=== PATIENT | male | born 1960 | race Caucasian/White ===

== ENCOUNTER 2016-08-26 11:11 | Observation (INO) | payer OTHER ==
[~2016-08-26] VITALS: Ht 172.7 cm; Wt 139.7 kg
--- NOTE | 2016-08-26 12:25 | DIAGNOSTIC IMAGING REPORT ---
PROCEDURE: XR CHEST 1 VIEW INDICATION: CHEST PAIN TECHNIQUE: Portable AP view 11:45 a.m. COMPARISON: None. FINDINGS: Lungs are clear. Heart and mediastinum are normal. Thorax is normal. IMPRESSION: 1. Negative chest.
[2016-08-26 17:52] VITALS: BP 130/72
--- NOTE | 2016-08-26 18:08 | History & Physical Report ---
Information Source Information Source: Self Reliability: Good History Chief Complaint syncope and dizziness History of Present Illness Patient is a 56 year old male with a pmh of hypertension, herniated discs, asthma, and plantar fasciitis that is presenting with near syncope and hypotension. Patient had been in his [facility] when the patient started to see a new doctor for the first time in two years. Patient was placed on anti hypertensives as well as diuretics. Patient took the medications as prescribed and didnt have any adverse effects. Patient while at home had a sudden bout of vomiting and diarrhea while in the shower. Patient as a result fell and twisted his ankle. Patient had discomfort and swelling as a result. Patient called his doctor and described his leg "swollen to the size of a baseball". His pmd recommended that the patient start chlorathalidone for the swelling, and patient was told to increase his dosage over the next 4 days to 4 pills a day. Patient as a result began to take the medication. Patients leg swelling improved however he began to feel dizzy very easily and during each instance he had his fiance take his blood pressure which was 80s systolic. Patient continued on the medication despite this and would occasionally get dizzy and develop tunnel vision. Patient finally had a near syncopal episode this morning, his systolic was seen to be 75 by ems and patient was subsequently brought to the hospital. Patient History 1. Near syncope 2. Dehydration 3. Renal failure 4. Hypertension 5. Disc herniation 6. Plantar fasciitis Social History Patient lives alone at home with his . He is on disability and is indepent in all his ADLs. Patient additonally does not smoke, drinks socially and does use any illicit drugs. Family History Family history was reviewed; no changes noted. Medications and Allergies Medications Home Medications Oxycodone 5 mg tid flovent hfa inhaler proair hfa inhaler atrovastatin 40 mg daily losartan 100 mg daily tizanidine 12 mg tid gabapentin 200 mg tid Current Medications Sig/Ginette Start time Last Medication Dose Route Stop Time Status Admin Atorvastatin Calcium 40 MG QPM 08/27 1800 AC PO Gabapentin 200 MG TID 08/26 2200 AC PO Albuterol Sulfate 2.5 MG Q4H PRN 08/26 1915 AC IN Acetaminophen 650 MG Q6H PRN 08/26 183 AC PO Albuterol See Dose RTQ4H PRN 08/26 1830 CAN Insts (1) IN Oxycodone HCl 5 MG Q6H PRN 08/26 1830 AC PO Sodium Chloride 1,000 ML ASDIRECTED 08/26 1830 AC 08/26 IV 1915 Sodium Chloride 1,000 ML ASDIRECTED 08/26 1630 AC IV 08/27 0200 Dose Instructions: (1)Albuterol: 1 - 2 PUFFS Allergies Coded Allergies: Pseudoephedrine (From SUDAFED) (Intermediate, Confusion 08/26/16) Lidocaine (Mild, 08/26/16) Review of Systems Constitutional Weakness. Denies: Fever, Chills, Sweats, Malaise, Other. Eyes Other (tunnel vision occasionally ). Denies: Pain, Vision Change, Conjunctival Inflammation, Eyelid Inflammation, Redness. ENT Denies: Ear Pain, Ear Discharge, Nose Pain, Nasal Discharge, Nasal Congestion, Mouth Pain, Mouth Swelling, Throat Pain, Throat Swelling, Other. Respiratory Denies: Cough, Dry, SOB w/exertion, Wheezing, Hemoptysis, Pleuritic Pain, Sputum , Other. Cardiovascular Denies: Chest Pain, Palpitations, Orthopnea, PND, Edema, Light-headedness, Other. Gastrointestinal Denies: Nausea, Vomiting, Abdominal Pain, Diarrhea, Constipation, Melena, Hematochezia, Other. Genitourinary Denies: Dysuria, Frequency, Incontinence, Hematuria, Retention, Other. Musculoskeletal Back Pain. Denies: Neck Pain, Shoulder Pain, Arm Pain, Hand Pain, Leg Pain, Foot Pain, Other. Skin Denies: Rash, Lesions, Jaundice, Bruising, Other. Neurological Weakness, Other (dizziness ). Physical Exam Vital Signs / I&Os Vital Signs Date Time Temp Pulse Resp B/P Pulse O2 O2 Flow FiO2 Ox Delivery Rate 08/26 192 Room Air 08/26 1752 98.2 93 22 130/72 100 Room Air General Appearance Alert, Oriented X3, No acute distress HEENT Atraumatic, PERRLA, EOMI, Moist mucous membranes Lungs Normal exam, Clear to auscultation, Normal air movement Cardiovascular Regular rate and rhythm, Normal S1 and S2, No murmurs, gallops, rubs Abdomen Soft, No tenderness, No guarding, No rebound, No masses, No hepatosplenomegaly Extremities No clubbing, No edema, Normal pulses, No tenderness, Genny's sign negative Skin No Rashes, No Breakdown, No Significant Lesions Neurological Normal speech, Normal tone, Sensation intact, Cranial nerves intact , Strength 5/5 x4 ext's, No lateralizing signs Psych/Mental Status Mental status normal LAB Results Laboratory Tests 08/26 08/26 08/26 1155 1155 1155 Chemistry Plasma Sodium (136 - 145 mmol/L) 140 Plasma Potassium (3.5 - 5.1 mmol/L) 2.9 Plasma Chloride (98 - 107 mmol/L) 100 CO2 (Enzymatic) (21 - 32 mmol/L) 27 BUN (7 - 18 mg/dL) 52 Creatinine (0.6 - 1.3 mg/dL) 3.0 Est GFR ( Amer) (mL/min) 28.23 Est GFR (Non-Af Amer) (mL/min) 23.29 Glucose (70 - 110 mg/dL) 111 Plasma Calcium (8.5 - 10.1 mg/dL) 7.9 Plasma Magnesium (1.8 - 2.4 mg/dL) 1.8 Total Bilirubin (0.0 - 1.0 mg/dL) 0.4 AST (15 - 37 U/L) 34 ALT (12 - 78 U/L) 52 Alkaline Phosphatase (46 - 116 U/L) 65 Creatine Kinase (24 - 260 U/L) 174 Troponin (0.00 - 1.5 ng/mL) 0.06 B-Natriuretic Peptide (5 - 100 pg/ml) 75.2 Total Protein (6.4 - 8.2 g/dL) 7.6 Albumin (3.3 - 5.0 g/dL) 3.6 TSH 3rd Generation (0.30 - 3.74 uIU/mL) 4.416 Cancelled Hematology WBC (4.5 - 11.5 K/uL) 7.9 RBC (4.50 - 5.90 M/uL) 3.98 Hgb (13.5 - 17.5 gm/dL) 12.0 Hct (41.0 - 53.0 %) 35.3 MCV (80 - 100 fL) 89 MCH (26 - 34 pg) 30 RDW (11.6 - 14.8 %) 14.5 Neut % (Auto) (50 - 75 %) 63.6 Lymph % (Auto) (25 - 40 %) 26.7 Hudson % (Auto) (3 - 14 %) 6.8 Eos % (Auto) (0 - 4 %) 2.0 Baso % (Auto) (0 - 2 %) 0.9 Plt Count, EDTA (150 - 400 K/uL) 195 PUBS MCHC (31 - 37 g/dL) 34 Assessment and Plan Problem List 1. Renal failure Plan - presumably secondary to diuretic overuse - pts renal function last year was normal - will hold anti hypertensives and diuretics for the time being - will judicously rehydrate and monitor for overload 2. Near syncope Plan - secondary to fluid depletion and dehydration - after receiving 1 liter of normal saline paient has no dizziness and no syncope - will continue to monitor and slowly infuse fluid - will monitor cmp 3. Hypertension Plan - pt has an established history of hypertension - will hold meds in the am 4. Disc herniation Plan - patient has an established history - currently patients pain is well controlled - will continue with oral pain medicaitons 5. Plantar fasciitis Plan - pt has a history of plantar fasciitis that is being treated with oral pain medication and stretching excercises - Will monitor for exacerbation
[2016-08-26 22:07] VITALS: BP 150/68
[2016-08-26] MEDS ORDERED: LIPITOR40 MG PO (22:48)
[2016-08-26] MEDS ORDERED: FLOVENT HFA (22:49)
[2016-08-26] MEDS ORDERED: NEURONTIN100 MG PO (22:50)
[2016-08-26] MEDS ORDERED: OXAYDO5 MG PO (22:51)
[2016-08-26] MEDS ORDERED: LOSARTAN POTAS100 MG PO (22:51)
[2016-08-26] MEDS ORDERED: ZANAFLEX6 MG PO (22:52)
[2016-08-26] MEDS ORDERED: PROAIR HFA IN (22:52)
[2016-08-27 01:58] VITALS: BP 148/75
--- NOTE | 2016-08-27 02:34 | ED CLINICAL REPORT ---
Clinical Report - Physicians/Mid Levels [facility] [address] [place] [address] 08/26/2016 11:12 Patient: JOY HARO Time Seen: 11:23 Aug 26 2016. Arrived- By ambulance. Historian- EMS personnel. CPT: ER phys charges level 5 plus (#360202). EKG interpretation (#[id number]). HISTORY OF PRESENT ILLNESS Chief Complaint: DIZZINESS and NEAR-SYNCOPE. ( Pt taken off lisinopril/HCTZ 1 month ago due to allergy and switched to losartan 100 mg a day. About 3 weeks ago the patient developed ankle edema and was started on a diuretic that was to taper from 1 pill a day to 4 pills a day. The patient just got to the 4 pills a day level 3 days ago when he started to feel dizzy. IN addition he had been off his pain pills for 5 days and restarted percocet last night by taking 2 pills for his chronic foot pain.). Severity described as moderate at its maximum. When seen in the E.D., it was almost gone. Modifying factors- worsened by standing up. Relieved by rest. Described as feeling light-headed and faint. 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 No nausea or vomiting. (Had transient CP for a few minutes this morning that has resolved. No hx of CAD,). Similar symptoms previously: None. Recent medical care: The patient was seen recently at another facility in a clinic. REVIEW OF SYSTEMS No headache, double vision, fainting episodes, head injury or palpitations. No black stools, bloody stools, fever or sore throat or throat. No cough, difficulty breathing, abdominal pain, diarrhea or difficulty with urination. No skin rash or rash, enlarged lymph nodes, chills or diabetic symptoms. No easy bruising. The patient has had weakness,, dizziness and weakness. He has had difficulty walking (chronically due to foot pain). He has had mild, pressure-like left-sided and central chest pain (for 3 minutes. Now resolved.). All systems otherwise negative, except as recorded above. PAST HISTORY ( Buldging discs. Lumbar spine with chronic back pain. 3 R toes dislocated, 2 on L. Plantar Fasciitis. Hammer Toes. Mortan neuroma both feet. Hypertension. --11:14 Sunshine Mejia. CP in the 1979's due to stress with cardiac w/u negative. Never have had to have any further studies. ADDITIONAL SURGERIES: L foot. R shoulder.). Medications: OxyCODONE HCl Oral 5 mg, 3x a day. Flovent HFA Inhalation. ProAir HFA Inhalation. Atorvastatin Calcium Oral 40 mg, daily. Losartan Potassium Oral 100 mg, daily. TiZANidine HCl Oral 12 mg, 3x a day. Gabapentin Oral 200 mg, 3x a day. Allergies: Lidocaine. SOCIAL HISTORY Never smoker. Occasional alcohol use. No drug use. ADDITIONAL NOTES The nursing notes have been reviewed. PHYSICAL EXAM Vital Signs: 08/26/2016 11:16 BP: 84/45. HR: 67. RR: 15. O2 saturation: 94%. Temp: 98.5 F. Appearance: Alert. No acute distress. Eyes: Pupils equal, round and reactive to light. No nystagmus. Extraocular movements normal. ENT: Normal ENT inspection. TM's normal. Moist mucous membranes. Pharynx normal. Neck: Normal inspection. Neck supple. CVS: Normal heart rate and rhythm. Heart sounds normal. Pulses normal. Respiratory: No respiratory distress. Breath sounds normal. Abdomen: Soft and nontender. Obese. Back: Normal inspection. Skin: Skin warm. Normal skin color. No rash. Extremities: Extremities exhibit normal ROM. No lower extremity edema. Neuro: Alert. Oriented X 3. Mood/affect normal. Speech normal. Cranial nerves normal (as tested). No cerebellar findings. No motor deficit. No sensory deficit. Reflexes normal. LABS, X-RAYS, AND EKG EKG: Normal sinus rhythm. Normal P waves. Wide QRS- intraventricular conduction delay. Normal ST and T waves. Prior EKG unavailable. The study has been interpreted contemporaneously. The study has been independently viewed by me. The EKG appears to be a good tracing. Chest X-ray: Normal Chest X-Ray. Laboratory Tests: CBC w Diff: (CESILIA: 08/26/2016 11:55) ( MsgRcvd 08/26/2016 12:21) Final results Test Result Flag Units (Reference) WHITE BLOOD COUNT 7.9 K/uL (4.5-11.5) RED BLOOD COUNT 3.98 L M/uL (4.50-5.90) HEMOGLOBIN 12.0 L gm/dL (13.5-17.5) HEMATOCRIT 35.3 L % (41.0-53.0) MEAN CELL VOLUME 89 fL (80-100) MEAN CORPUSCULAR HGB 30 pg (26-34) MEAN CORPUSCULAR HGB CONC 34 g/dL (31-37) RED CELL DISTRIBUTION WIDTH 14.5 % (11.6-14.8) PLATELET COUNT 195 K/uL (150-400) NEUTROPHIL % 63.6 % (50-75) LYMPH % 26.7 % (25-40) MONO % 6.8 % (3-14) EOSINOPHIL % 2.0 % (0-4) BASOPHIL % 0.9 % (0-2) BNP: (CESILIA: 08/26/2016 11:55) ( [facility] 08/26/2016 13:33) Final results Test Result Flag Units (Reference) B-TYPE NATRIURETIC PEPTIDE 75.2 pg/ml (5-100) CHEM 13 PANEL: (CESILIA: 08/26/2016 11:55) ( [facility] 08/26/2016 13:35) Final results Test Result Flag Units (Reference) GLUCOSE 111 H mg/dL (70-110) BUN 52 H mg/dL (7-18) CREATININE 3.0 H mg/dL (0.6-1.3) Estimated GFR 23.29 mL/min Estimated GFR- 28.23 mL/min Note: Persistent reduction over 3 months in eGFR<60 mL/min/1.73 m2 defines CKD. Patients with eGFR values>=60 mL/min/1.73 m2 may also have CKD if evidence ofpersistent proteinuria. Additional information may be foundat www.[email or web address]. SODIUM 140 mmol/L (136-145) POTASSIUM 2.9 *L mmol/L (3.5-5.1) CRITICAL RESULTS CALLEDCalled to [facility] 08/26/16 [id number] 2 patient identifiers used? YWas the result read back? Y CHLORIDE 100 mmol/L (98-107) CARBON DIOXIDE 27 mmol/L (21-32) CALCIUM 7.9 L mg/dL (8.5-10.1) TOTAL PROTEIN 7.6 g/dL (6.4-8.2) ALBUMIN 3.6 g/dL (3.3-5.0) BILIRUBIN, TOTAL 0.4 mg/dL (0.0-1.0) ALKALINE PHOSPHATASE 65 U/L (46-116) AST (SGOT) 34 U/L (15-37) ALT (SGPT) 52 U/L (12-78) MAGNESIUM 1.8 mg/dL (1.8-2.4) CPK 174 U/L (24-260) TROPONIN I 0.06 ng/mL (0.00-1.5) TROPONIN REFERENCE RANGE:<0.1 NEGATIVE0.1-1.5 INDETERMINANT>1.5 POSITIVE THYROID STIMULATING HORMONE 4.416 H uIU/mL (0.30-3.74) . PROGRESS AND PROCEDURES Course of Care: Discussed with on-call Doctor and the diuretic started was 25 mg chlorthalidone. The patient had normal BUN/Creatinine a month ago. Pt near syncope and hypotension is likely a combination of over-diuresis and initiation of percocet last night for the first time in a week. Pt now in renal failure due to dehydration . Hypokalemia due to diuretic. Discussed case with on-call health care provider, (Davie). Reviewed test results. Agreed upon treatment plan and decision to admit. Health care provider will see patient in ED. CLINICAL IMPRESSION Near syncope .12 lead EKG performed. Acute dizziness. Hypotension; Primary Hypokalemia Acute renal failure due to over-diuresis: Primary. (Electronically signed by Luis Zamarripa MD 08/28/2016 9:20)
--- NOTE | 2016-08-27 02:34 | ED ORDER SUMMARY ---
..... Patient: JOY HARO OrderSheet [facility] VisitID: [id number] [address] [place] [address] 56y, M Registration Date/Time: 08/26/2016 ORDER SHEET Weight: 136.0 kg (stated) Allergies: Lidocaine GENERAL ORDERS: Chest 1V Urgent (11:35 08/26/2016 Prachi RAMIREZ) (Ack 11:38 KHoerner) (11:48 KHoerner) Window Trimmer Apprentice (Continuous) (11:35 08/26/2016 Prachi RAMIREZ) (11:36 ASchmuck) Cardiac Panel Stat (11:36 08/26/2016 Prachi RAMIREZ) (Ack 11:38 SALOMEoerner) (11:58 ASchmuck) BNP Urgent (11:36 08/26/2016 Prachi RAMIREZ) (Ack 11:38 SALOMEoerner) (11:58 ASchmuck) TSH Urgent (11:36 08/26/2016 Prachi RAMIREZ) (Ack 11:38 Maganrner) (11:59 ASchmuck) Pulse oximeter (11:36 08/26/2016 Prachi RAMIREZ) (11:36 ASchmuck) EKG - ER Stat (11:36 08/26/2016 Prachi RAMIREZ) (Ack 11:38 KHoerner) (12:00 LNations ER Tech1) MEDICATION ORDERS: KCl PO 20 meq (NOW) (12:50 08/26/2016 Prachi RAMIREZ) (Ack 12:54 ASchmuck) (12:58 ASchmuck) IV FLUIDS: IV NS : initial bolus 1000 mL (1000 mL/hr), then 500 mL/hr for X2 (NOW) (until BP stable.) (11:35 08/26/2016 Prachi RAMIREZ) (11:37 ASchmuck) ORDER SHEET NOTES: [Electronically signed by Luca Castellanos R.N. (17:51 08/26/2016)] [Electronically signed by Luis Zamarripa MD (09:20 08/28/2016)] [Electronically locked/signed by Luca Castellanos R.N. (17:51 08/26/2016)]
--- NOTE | 2016-08-27 02:34 | ED CLINICAL REPORT ---
Clinical Report - Physicians/Mid Levels [facility] [address] [place] [address] 08/26/2016 11:12 Patient: JOY HARO Time Seen: 11:23 Aug 26 2016. Arrived- By ambulance. Historian- EMS personnel. CPT: ER phys charges level 5 plus (#[id number]). EKG interpretation (#[id number]). HISTORY OF PRESENT ILLNESS Chief Complaint: DIZZINESS and NEAR-SYNCOPE. ( Pt taken off lisinopril/HCTZ 1 month ago due to allergy and switched to losartan 100 mg a day. About 3 weeks ago the patient developed ankle edema and was started on a diuretic that was to taper from 1 pill a day to 4 pills a day. The patient just got to the 4 pills a day level 3 days ago when he started to feel dizzy. IN addition he had been off his pain pills for 5 days and restarted percocet last night by taking 2 pills for his chronic foot pain.). Severity described as moderate at its maximum. When seen in the E.D., it was almost gone. Modifying factors- worsened by standing up. Relieved by rest. Described as feeling light-headed and faint. 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 No nausea or vomiting. (Had transient CP for a few minutes this morning that has resolved. No hx of CAD,). Similar symptoms previously: None. Recent medical care: The patient was seen recently at another facility in a clinic. REVIEW OF SYSTEMS No headache, double vision, fainting episodes, head injury or palpitations. No black stools, bloody stools, fever or sore throat or throat. No cough, difficulty breathing, abdominal pain, diarrhea or difficulty with urination. No skin rash or rash, enlarged lymph nodes, chills or diabetic symptoms. No easy bruising. The patient has had weakness,, dizziness and weakness. He has had difficulty walking (chronically due to foot pain). He has had mild, pressure-like left-sided and central chest pain (for 3 minutes. Now resolved.). All systems otherwise negative, except as recorded above. PAST HISTORY ( Buldging discs. Lumbar spine with chronic back pain. 3 R toes dislocated, 2 on L. Plantar Fasciitis. Hammer Toes. Mortan neuroma both feet. Hypertension. --11:14 Sunshine Mejia. CP in the 1979's due to stress with cardiac w/u negative. Never have had to have any further studies. ADDITIONAL SURGERIES: L foot. R shoulder.). Medications: OxyCODONE HCl Oral 5 mg, 3x a day. Flovent HFA Inhalation. ProAir HFA Inhalation. Atorvastatin Calcium Oral 40 mg, daily. Losartan Potassium Oral 100 mg, daily. TiZANidine HCl Oral 12 mg, 3x a day. Gabapentin Oral 200 mg, 3x a day. Allergies: Lidocaine. SOCIAL HISTORY Never smoker. Occasional alcohol use. No drug use. ADDITIONAL NOTES The nursing notes have been reviewed. PHYSICAL EXAM Vital Signs: 08/26/2016 11:16 BP: 84/45. HR: 67. RR: 15. O2 saturation: 94%. Temp: 98.5 F. Appearance: Alert. No acute distress. Eyes: Pupils equal, round and reactive to light. No nystagmus. Extraocular movements normal. ENT: Normal ENT inspection. TM's normal. Moist mucous membranes. Pharynx normal. Neck: Normal inspection. Neck supple. CVS: Normal heart rate and rhythm. Heart sounds normal. Pulses normal. Respiratory: No respiratory distress. Breath sounds normal. Abdomen: Soft and nontender. Obese. Back: Normal inspection. Skin: Skin warm. Normal skin color. No rash. Extremities: Extremities exhibit normal ROM. No lower extremity edema. Neuro: Alert. Oriented X 3. Mood/affect normal. Speech normal. Cranial nerves normal (as tested). No cerebellar findings. No motor deficit. No sensory deficit. Reflexes normal. LABS, X-RAYS, AND EKG EKG: Normal sinus rhythm. Normal P waves. Wide QRS- intraventricular conduction delay. Normal ST and T waves. Prior EKG unavailable. The study has been interpreted contemporaneously. The study has been independently viewed by me. The EKG appears to be a good tracing. Chest X-ray: Normal Chest X-Ray. Laboratory Tests: CBC w Diff: (CESILIA: 08/26/2016 11:55) ( MsgRcvd 08/26/2016 12:21) Final results Test Result Flag Units (Reference) WHITE BLOOD COUNT 7.9 K/uL (4.5-11.5) RED BLOOD COUNT 3.98 L M/uL (4.50-5.90) HEMOGLOBIN 12.0 L gm/dL (13.5-17.5) HEMATOCRIT 35.3 L % (41.0-53.0) MEAN CELL VOLUME 89 fL (80-100) MEAN CORPUSCULAR HGB 30 pg (26-34) MEAN CORPUSCULAR HGB CONC 34 g/dL (31-37) RED CELL DISTRIBUTION WIDTH 14.5 % (11.6-14.8) PLATELET COUNT 195 K/uL (150-400) NEUTROPHIL % 63.6 % (50-75) LYMPH % 26.7 % (25-40) MONO % 6.8 % (3-14) EOSINOPHIL % 2.0 % (0-4) BASOPHIL % 0.9 % (0-2) BNP: (CESILIA: 08/26/2016 11:55) ( [facility] 08/26/2016 13:33) Final results Test Result Flag Units (Reference) B-TYPE NATRIURETIC PEPTIDE 75.2 pg/ml (5-100) CHEM 13 PANEL: (CESILIA: 08/26/2016 11:55) ( [facility] 08/26/2016 13:35) Final results Test Result Flag Units (Reference) GLUCOSE 111 H mg/dL (70-110) BUN 52 H mg/dL (7-18) CREATININE 3.0 H mg/dL (0.6-1.3) Estimated GFR 23.29 mL/min Estimated GFR- 28.23 mL/min Note: Persistent reduction over 3 months in eGFR<60 mL/min/1.73 m2 defines CKD. Patients with eGFR values>=60 mL/min/1.73 m2 may also have CKD if evidence ofpersistent proteinuria. Additional information may be foundat [email or web address]. SODIUM 140 mmol/L (136-145) POTASSIUM 2.9 *L mmol/L (3.5-5.1) CRITICAL RESULTS CALLEDCalled to [facility] 08/26/16 [id number] 2 patient identifiers used? YWas the result read back? Y CHLORIDE 100 mmol/L (98-107) CARBON DIOXIDE 27 mmol/L (21-32) CALCIUM 7.9 L mg/dL (8.5-10.1) TOTAL PROTEIN 7.6 g/dL (6.4-8.2) ALBUMIN 3.6 g/dL (3.3-5.0) BILIRUBIN, TOTAL 0.4 mg/dL (0.0-1.0) ALKALINE PHOSPHATASE 65 U/L (46-116) AST (SGOT) 34 U/L (15-37) ALT (SGPT) 52 U/L (12-78) MAGNESIUM 1.8 mg/dL (1.8-2.4) CPK 174 U/L (24-260) TROPONIN I 0.06 ng/mL (0.00-1.5) TROPONIN REFERENCE RANGE:<0.1 NEGATIVE0.1-1.5 INDETERMINANT>1.5 POSITIVE THYROID STIMULATING HORMONE 4.416 H uIU/mL (0.30-3.74) . PROGRESS AND PROCEDURES Course of Care: Discussed with on-call Doctor and the diuretic started was 25 mg chlorthalidone. The patient had normal BUN/Creatinine a month ago. Pt near syncope and hypotension is likely a combination of over-diuresis and initiation of percocet last night for the first time in a week. Pt now in renal failure due to dehydration . Hypokalemia due to diuretic. Discussed case with on-call health care provider, (Davie). Reviewed test results. Agreed upon treatment plan and decision to admit. Health care provider will see patient in ED. CLINICAL IMPRESSION Near syncope .12 lead EKG performed. Acute dizziness. Hypotension; Primary Hypokalemia Acute renal failure due to over-diuresis: Primary. (Electronically signed by Luis Zamarripa MD 08/28/2016 9:20)
--- NOTE | 2016-08-27 02:34 | ED NURSING NOTES ---
Clinical Report - Nurses [facility] [address] [place] [address] 08/26/2016 11:12 [id number] TRI[facility] Triage time 11:Aug 26 2016. Acuity: LEVEL 3. Chief Complaint: DIZZINESS. 11:16 08/26/16. Alert. No acute distress. SEPSIS SCREEN: Sepsis Screen. Negative (no infection suspected/documented). KEANU COMA SCORE: Keanu Coma Scale: 15- eyes open spontaneously (4); best verbal response- oriented x 4 (5); best motor response- obeys commands (6). --11:16 Sunshine Mejia 11:16 08/26/16. BP: 84/45. HR: 67. RR: 15. O2 saturation: 94%. Temp: 98.5 F. Pain level now 0/10. --11:16 Sunshine Mejia. Weight: 136 kg stated. Height/Length: 68 inches Per Patient. BMI: 45.6. --11:15 Sunshine Mejia. Medications Gabapentin Oral 200 mg, 3x a day. --11:11 Sunshine Mejia TiZANidine HCl Oral 12 mg, 3x a day. --11:11 Sunshine Mejia Losartan Potassium Oral 100 mg, daily. --11:11 Sunshine Mejia Atorvastatin Calcium Oral 40 mg, daily. --11:12 Sunshine Mejia ProAir HFA Inhalation. --11:12 Sunshine Mejia Flovent HFA Inhalation. --11:12 Sunshine Mejia OxyCODONE HCl Oral 5 mg, 3x a day. --11:12 Sunshine Mejia. Medication/allergy information source: the patient. --11:16 Sunshine Mejia. Allergies Lidocaine. --11:12 Sunshine Mejia. History Arrived by EMS. Historian: EMS and patient. Accompanied by (EMS). [facility] This started today. ( Pt reports that his doctor has recently changed his cholesterol and BP medication. States that yesterday he took 2 water pills, when normally he takes 4. Today had some dizziness when he stood up. Also had an episode of chest pressure that radiated to neck that lasted "a few minutes."). The patient has had a headache and weakness. No ear pain, nausea, trouble walking, vomiting or fainting episodes. No tinnitus. 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 Finger stick glucose performed (147). BP: 70/30. HR: 66. O2 saturation: 96 % room air. PAST MEDICAL HX: No history of stroke, diabetes mellitus or hypertension. No history of seizures or GI bleed. Immunizations: up-to-date and has received pneumonia vaccine; seasonal influenza. SOCIAL HX: Never smoker. Occasional alcohol use. No drug use. FALL RISK ASSESSMENT: Fall risk assessment completed. No fall risk identified. NUTRITIONAL RISK ASSESSMENT: The nutritional risk assessment revealed no deficiencies. FUNCTIONAL ASSESSMENT: Functional assessment: no impairments noted. LEARNING NEEDS ASSESSMENT: The learning needs assessment revealed no barriers. SKIN INTEGRITY ASSESSMENT: Skin integrity risk assessment completed. No skin integrity risk identified. --11:16 Sunshine Mejia. PROBLEMS: Buldging discs. 3 R toes dislocated, 2 on L. Plantar Fasciitis. Hammer Toes. Mortan neuroma both feet. Hypertension. --11:14 Sunshine Mejia. ADDITIONAL SURGERIES: L foot. R shoulder. --11:14 Sunshine Mejia. Assessment The patient states feels the same. --11:16 Sunshine Mejia. Interventions ID band on patient. --11:16 Sunshine Mejia. PHYSICAL ASSESSMENT 11:17 08/26/16. Ambulatory to room. Patient gowned. GENERAL / NEURO / PSYCH: Oriented X 4. Appears in no acute distress. Alert. Speech within normal limits. HEENT: No facial asymmetry noted. Pupils equal, round and reactive to light. RESPIRATORY: Respirations not labored. CVS: Normal sinus rhythm noted. Capillary refill less than 2 seconds. GI / : Abdomen soft and nontender. SKIN: Skin is warm and dry. --11:17 Sunshine Mejia. NURSING PROGRESS NOTES 11:09 08/26/2016 Site #1 started prior to arrival by EMS via IV in the left hand with an 20g angiocath. --11:19 Sunshine Mejia 11:17 08/26/16. The plan of care for this patient has been created. security monitor, pulse oximeter and NIBP monitor placed on patient; case monitor- Lead II and V5; monitor alarms on. Patient gowned. Head of bed elevated. Reassurance given. Two patient identifiers checked. Call light placed in reach. Side rails up x 1. Bed placed in lowest position. Brakes of bed on. Patient ready for evaluation- chart flagged and ED physician notified. --11:17 Sunshine Mejia 11:17 08/26/16. ( Warm blankets provided to patient.). --11:17 Sunshine Mejia 11:18 08/26/16. ( Pt reports he usually uses electric wheelchair, however since it's been broken lately, he has been using a cane.). --11:18 Sunshine Mejia 11:08/26/2016 Started bag #1 1000 mL IV Fluids IV NS (Saline); at 1000 mL/hr over 1 hour(s) via site #1 via dial-a-flow. Allergies verified and confirmed 5 rights. IV patency established. IV site checked: no pain, redness, or swelling. IV flushed thoroughly pre- and post-medication administration. --11:37 Sunshine Mejia ( Lab in room for blood draw.). --11:56 Sunshine Mejia 11:54 08/26/16. BP: 105/61. HR: 74. RR: 16. O2 saturation: 98% on room air. --11:56 Sunshine Mejia EKG time: (1157). EKG was ordered, performed by a tech and shown to the ED physician. --12:00 Jordyn White ER Tech1 12:52 08/26/16. BP: 92/47. HR: 65. RR: 14. O2 saturation: 99%. --12:52 Sunshine Mejia 12:58 08/26/2016 KCL (Potassium Chloride ER) PO Tablets 20 meq given. Allergies verified and confirmed 5 rights. --12:58 Sunshine Mejia 13:07 08/26/2016 IV Fluids IV NS Discontinued: bag #1 infused. Total amount infused: 1000 mL. --13:07 Sunshine Mejia 13:27 08/26/2016 Started bag #1 1000 mL IV Fluids IV NS (Saline); at 1000 mL/hr over 1 hour(s) via site #1 via IV pump. Allergies verified and confirmed 5 rights. IV patency established. IV site checked: no pain, redness, or swelling. IV flushed thoroughly pre- and post-medication administration (verbal order from ERMD). --13:27 Sunshine Mejia ( assisted pt. up from bed to use a urinal. Pt. request to put pajama bottoms on with gown. Assisted pt. back to bed.). --13:39 Jordyn White, ER Tech1 14:12 08/26/16. BP: 120/65. HR: 68. O2 saturation: 100% on room air. --14:13 Sunshine Mejia 14:51 08/26/16. Care transferred and report given (Luca RN). --14:51 Sunshine Mejia 14:45 08/26/16. BP: 151/55. HR: 66. O2 saturation: 97% on room air. --15:03 Luca Castellanos R.N. ( pt. given ice water.). --15:11 Jordyn White, ER Tech1 15:45 08/26/16. BP: 142/65. HR: 77. RR: 20. O2 saturation: 97% on room air. --16:00 Luca Castellanos R.N. ( Dr Broderick here to the see the patient.). --16:24 Luca Castellanos R.N. 15:00 08/26/2016 IV Fluids IV NS via IV site #1 Rate Changed: bag #2 21 mL/hr via IV pump. IV patency established. IV site checked: no pain, redness, or swelling. IV flushed thoroughly. (Bolus dose complete). --17:06 Luca Castellanos R.N. 15:04 08/26/16. security monitor, pulse oximeter and NIBP monitor placed on patient; case monitor- Lead II and V1; monitor alarms on. Side rails up x 2. Bed placed in lowest position. Brakes of bed on. --15:04 Luca Castellanos R.N. 16:40 08/26/16. BP: 119/56. HR: 86. RR: 20. O2 saturation: 97% on room air. Pain level now: 0/10. --17:49 Luca Castellanos R.N. Cardiac rhythm: normal sinus rhythm. --17:50 Luca Castellanos R.N. 16:20 08/26/16. BP: 132/65. HR: 83. RR: 20. O2 saturation: 99% on room air. Pain level now: 0/10. --17:50 Luca Castellanos R.N. Intake & Output 15:41 08/26/16. Urine: 350 mL, with return of yellow-colored urine. --15:41 Devin Finley R.N. DISPOSITION / DISCHARGE 17:26 08/26/16. Report was given to a nurse via a phone call. Report included patient's care, treatment, medications, reviewed medication reconcilliation, and condition (including any recent changes or anticipated changes). All questions were answered. Report was acknowledged. --17:27 Luca Castellanos R.N. 17:30 08/26/2016 Site #[address] upon admission; patent, no pain and no signs of infection or infiltration. Flushed with 10 mL saline. --17:47 Luca Castellanos R.N. 17:47 08/26/16. Departure time: 1730. Cardiac rhythm: normal sinus rhythm. Condition at departure: stable. Disposition: observation in the Critical Care Unit (304). Transported via by transport team with IV. Patient's personal items include, 1 bag with pt. --17:48 Luca Castellanos R.N. 17:15 08/26/16. BP: 110/44. HR: 84. RR: 20. O2 saturation: 96% on room air. Temp: 98.5 F (oral). Pain level now: 0/10. --17:48 Luca Castellanos R.N. Locked/Released at 08/26/2016 17:51 by Luca Castellanos R.N.
--- NOTE | 2016-08-27 02:34 | ED NURSING NOTES ---
Clinical Report - Nurses [address] [place] [address] 08/26/2016 11:12 [id number] TRI[facility] Triage time 11:Aug 26 2016. Acuity: LEVEL 3. Chief Complaint: DIZZINESS. 11:16 08/26/16. Alert. No acute distress. SEPSIS SCREEN: Sepsis Screen. Negative (no infection suspected/documented). KEANU COMA SCORE: Keanu Coma Scale: 15- eyes open spontaneously (4); best verbal response- oriented x 4 (5); best motor response- obeys commands (6). --11:16 Sunshine Mejia 11:16 08/26/16. BP: 84/45. HR: 67. RR: 15. O2 saturation: 94%. Temp: 98.5 F. Pain level now 0/10. --11:16 Sunshine Mejia. Weight: 136 kg stated. Height/Length: 68 inches Per Patient. BMI: 45.6. --11:15 Sunshine Mejia. Medications Gabapentin Oral 200 mg, 3x a day. --11:11 Sunshine Mejia TiZANidine HCl Oral 12 mg, 3x a day. --11:11 Sunshine Mejia Losartan Potassium Oral 100 mg, daily. --11:11 Sunshine Mejia Atorvastatin Calcium Oral 40 mg, daily. --11:12 Sunshine Mejia ProAir HFA Inhalation. --11:12 Sunshine Mejia Flovent HFA Inhalation. --11:12 Sunshine Mejia OxyCODONE HCl Oral 5 mg, 3x a day. --11:12 Sunshine Mejia. Medication/allergy information source: the patient. --11:16 Sunshine Mejia. Allergies Lidocaine. --11:12 Sunshine Mejia. History Arrived by EMS. Historian: EMS and patient. Accompanied by (EMS). [facility] This started today. ( Pt reports that his doctor has recently changed his cholesterol and BP medication. States that yesterday he took 2 water pills, when normally he takes 4. Today had some dizziness when he stood up. Also had an episode of chest pressure that radiated to neck that lasted "a few minutes."). The patient has had a headache and weakness. No ear pain, nausea, trouble walking, vomiting or fainting episodes. No tinnitus. 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 Finger stick glucose performed (147). BP: 70/30. HR: 66. O2 saturation: 96 % room air. PAST MEDICAL HX: No history of stroke, diabetes mellitus or hypertension. No history of seizures or GI bleed. Immunizations: up-to-date and has received pneumonia vaccine; seasonal influenza. SOCIAL HX: Never smoker. Occasional alcohol use. No drug use. FALL RISK ASSESSMENT: Fall risk assessment completed. No fall risk identified. NUTRITIONAL RISK ASSESSMENT: The nutritional risk assessment revealed no deficiencies. FUNCTIONAL ASSESSMENT: Functional assessment: no impairments noted. LEARNING NEEDS ASSESSMENT: The learning needs assessment revealed no barriers. SKIN INTEGRITY ASSESSMENT: Skin integrity risk assessment completed. No skin integrity risk identified. --11:16 Sunshine Mejia. PROBLEMS: Buldging discs. 3 R toes dislocated, 2 on L. Plantar Fasciitis. Hammer Toes. Mortan neuroma both feet. Hypertension. --11:14 Sunshine Mejia. ADDITIONAL SURGERIES: L foot. R shoulder. --11:14 Sunshine Mejia. Assessment The patient states feels the same. --11:16 Sunshine Mejia. Interventions ID band on patient. --11:16 Sunshine Mejia. PHYSICAL ASSESSMENT 11:17 08/26/16. Ambulatory to room. Patient gowned. GENERAL / NEURO / PSYCH: Oriented X 4. Appears in no acute distress. Alert. Speech within normal limits. HEENT: No facial asymmetry noted. Pupils equal, round and reactive to light. RESPIRATORY: Respirations not labored. CVS: Normal sinus rhythm noted. Capillary refill less than 2 seconds. GI / : Abdomen soft and nontender. SKIN: Skin is warm and dry. --11:17 Sunshine Mejia. NURSING PROGRESS NOTES 11:09 08/26/2016 Site #1 started prior to arrival by EMS via IV in the left hand with an 20g angiocath. --11:19 Sunshine Mejia 11:17 08/26/16. The plan of care for this patient has been created. visual communications instructor, pulse oximeter and NIBP monitor placed on patient; quarter seamer- Lead II and V5; monitor alarms on. Patient gowned. Head of bed elevated. Reassurance given. Two patient identifiers checked. Call light placed in reach. Side rails up x 1. Bed placed in lowest position. Brakes of bed on. Patient ready for evaluation- chart flagged and ED physician notified. --11:17 Sunshine Mejia 11:17 08/26/16. ( Warm blankets provided to patient.). --11:17 Sunshine Mejia 11:18 08/26/16. ( Pt reports he usually uses electric wheelchair, however since it's been broken lately, he has been using a cane.). --11:18 Sunshine Mejia 11:08/26/2016 Started bag #1 1000 mL IV Fluids IV NS (Saline); at 1000 mL/hr over 1 hour(s) via site #1 via dial-a-flow. Allergies verified and confirmed 5 rights. IV patency established. IV site checked: no pain, redness, or swelling. IV flushed thoroughly pre- and post-medication administration. --11:37 Sunshine Mejia ( Lab in room for blood draw.). --11:56 Sunshine Mejia 11:54 08/26/16. BP: 105/61. HR: 74. RR: 16. O2 saturation: 98% on room air. --11:56 Sunshine Mejia EKG time: (1157). EKG was ordered, performed by a tech and shown to the ED physician. --12:00 Jordyn White ER Tech1 12:52 08/26/16. BP: 92/47. HR: 65. RR: 14. O2 saturation: 99%. --12:52 Sunshine Mejia 12:58 08/26/2016 KCL (Potassium Chloride ER) PO Tablets 20 meq given. Allergies verified and confirmed 5 rights. --12:58 Sunshine Mejia 13:07 08/26/2016 IV Fluids IV NS Discontinued: bag #1 infused. Total amount infused: 1000 mL. --13:07 Sunshine Mejia 13:27 08/26/2016 Started bag #1 1000 mL IV Fluids IV NS (Saline); at 1000 mL/hr over 1 hour(s) via site #1 via IV pump. Allergies verified and confirmed 5 rights. IV patency established. IV site checked: no pain, redness, or swelling. IV flushed thoroughly pre- and post-medication administration (verbal order from ERMD). --13:27 Sunshine Mejia ( assisted pt. up from bed to use a urinal. Pt. request to put pajama bottoms on with gown. Assisted pt. back to bed.). --13:39 Jordyn White, ER Tech1 14:12 08/26/16. BP: 120/65. HR: 68. O2 saturation: 100% on room air. --14:13 Sunshine Mejia 14:51 08/26/16. Care transferred and report given (Luca RN). --14:51 Sunshine Mejia 14:45 08/26/16. BP: 151/55. HR: 66. O2 saturation: 97% on room air. --15:03 Luca Castellanos R.N. ( pt. given ice water.). --15:11 Jordyn White, ER Tech1 15:45 08/26/16. BP: 142/65. HR: 77. RR: 20. O2 saturation: 97% on room air. --16:00 Luca Castellanos R.N. ( Dr Broderick here to the see the patient.). --16:24 Luca Castellanos R.N. 15:00 08/26/2016 IV Fluids IV NS via IV site #1 Rate Changed: bag #2 21 mL/hr via IV pump. IV patency established. IV site checked: no pain, redness, or swelling. IV flushed thoroughly. (Bolus dose complete). --17:06 Luca Castellanos R.N. 15:04 08/26/16. visual communications instructor, pulse oximeter and NIBP monitor placed on patient; quarter seamer- Lead II and V1; monitor alarms on. Side rails up x 2. Bed placed in lowest position. Brakes of bed on. --15:04 Luca Castellanos R.N. 16:40 08/26/16. BP: 119/56. HR: 86. RR: 20. O2 saturation: 97% on room air. Pain level now: 0/10. --17:49 Luca Castellanos R.N. Cardiac rhythm: normal sinus rhythm. --17:50 Luca Castellanos R.N. 16:20 08/26/16. BP: 132/65. HR: 83. RR: 20. O2 saturation: 99% on room air. Pain level now: 0/10. --17:50 Luca Catsellanos R.N. Intake & Output 15:41 08/26/16. Urine: 350 mL, with return of yellow-colored urine. --15:41 Devin Finley R.N. DISPOSITION / DISCHARGE 17:26 08/26/16. Report was given to a nurse via a phone call. Report included patient's care, treatment, medications, reviewed medication reconcilliation, and condition (including any recent changes or anticipated changes). All questions were answered. Report was acknowledged. --17:27 Luca Castellanos R.N. 17:30 08/26/2016 Site #[address] upon admission; patent, no pain and no signs of infection or infiltration. Flushed with 10 mL saline. --17:47 Luca Castellanos R.N. 17:47 08/26/16. Departure time: 1730. Cardiac rhythm: normal sinus rhythm. Condition at departure: stable. Disposition: observation in the Critical Care Unit (304). Transported via by transport team with IV. Patient's personal items include, 1 bag with pt. --17:48 Luca Castellanos R.N. 17:15 08/26/16. BP: 110/44. HR: 84. RR: 20. O2 saturation: 96% on room air. Temp: 98.5 F (oral). Pain level now: 0/10. --17:48 Luca Castellanos R.N. Locked/Released at 08/26/2016 17:51 by Luca Castellanos R.N.
--- NOTE | 2016-08-27 02:34 | ED ORDER SUMMARY ---
..... Patient: JOY HARO OrderSheet [facility] VisitID: [id number] [address] [place] [address] 56y, M Registration Date/Time: 08/26/2016 ORDER SHEET Weight: 136.0 kg (stated) Allergies: Lidocaine GENERAL ORDERS: Chest 1V Urgent (11:35 08/26/2016 Prachi RAMIREZ) (Ack 11:38 KHoerner) (11:48 KHoerner) Cordage Sales Representative (Continuous) (11:35 08/26/2016 Prachi RAMIREZ) (11:36 ASchmuck) Cardiac Panel Stat (11:36 08/26/2016 Prachi RAMIREZ) (Ack 11:38 SALOMEoerner) (11:58 ASchmuck) BNP Urgent (11:36 08/26/2016 Prachi RAMIREZ) (Ack 11:38 SALOMEoerner) (11:58 ASchmuck) TSH Urgent (11:36 08/26/2016 Prachi RAMIREZ) (Ack 11:38 Maganrner) (11:59 ASchmuck) Pulse oximeter (11:36 08/26/2016 Prachi RAMIREZ) (11:36 ASchmuck) EKG - ER Stat (11:36 08/26/2016 Prachi RAMIREZ) (Ack 11:38 KHoerner) (12:00 LNations ER Tech1) MEDICATION ORDERS: KCl PO 20 meq (NOW) (12:50 08/26/2016 Prachi RAMIREZ) (Ack 12:54 ASchmuck) (12:58 ASchmuck) IV FLUIDS: IV NS : initial bolus 1000 mL (1000 mL/hr), then 500 mL/hr for X2 (NOW) (until BP stable.) (11:35 08/26/2016 Prachi RAMIREZ) (11:37 ASchmuck) ORDER SHEET NOTES: [Electronically signed by Luca Castellanos R.N. (17:51 08/26/2016)] [Electronically signed by Luis Zamarripa MD (09:20 08/28/2016)] [Electronically locked/signed by Luca Castellanos R.N. (17:51 08/26/2016)]
[2016-08-27 06:15] VITALS: BP 143/92
[2016-08-27 10:45] VITALS: BP 127/78
[2016-08-27 15:42] VITALS: BP 138/70
--- NOTE | 2016-08-27 17:20 | Progress Note ---
Subjective General Pt is doing well. Patient has no complaints and is resting comfortably. Patients renal function is improving as well as his hypotension. Constitutional Denies: Fever, Chills, Sweats, Weakness, Malaise, Other. Eyes Denies: Pain, Vision Change, Conjunctival Inflammation, Eyelid Inflammation, Redness, Other. ENT Denies: Ear Pain, Ear Discharge, Nose Pain, Nasal Discharge, Nasal Congestion, Mouth Pain, Mouth Swelling, Throat Pain, Throat Swelling, Other. Respiratory Denies: Cough, Dry, SOB w/exertion, Wheezing, Hemoptysis, Pleuritic Pain, Sputum , Other. Cardiovascular Denies: Chest Pain, Palpitations, Orthopnea, PND, Edema, Light-headedness, Other. Gastrointestinal Denies: Nausea, Vomiting, Abdominal Pain, Diarrhea, Constipation, Melena, Hematochezia, Other. Genitourinary Denies: Dysuria, Frequency, Incontinence, Hematuria, Retention, Other. Musculoskeletal Foot Pain. Denies: Neck Pain, Shoulder Pain, Arm Pain, Back Pain, Hand Pain, Leg Pain, Other. Skin Denies: Rash, Lesions, Jaundice, Bruising, Other. Neurological Denies: Weakness, Numbness, Incoordination, Change in speech, Confusion, Seizures, Other. Physical Exam Vital Signs / I&Os Vital Signs Date Time Temp Pulse Resp B/P Pulse O2 O2 Flow FiO2 Ox Delivery Rate 08/27 1805 99.0 107 19 129/77 97 Room Air 08/27 1542 98.8 96 17 138/70 Room Air 08/27 1045 98.4 96 16 127/78 93 08/27 0615 98.8 97 19 143/92 98 Room Air 08/27 0407 94 08/27 0158 99.1 95 17 148/75 98 Room Air 08/26 2207 98.4 101 18 150/68 97 Room Air 08/26 1921 Room Air I&O 08/26 0800 08/26 1600 08/27 0000 Intake Total 200 Output Total 500 Balance -300 General Appearance Alert, Oriented X3, No acute distress HEENT Atraumatic, PERRLA, Moist mucous membranes Lungs Clear to auscultation, Normal air movement Cardiovascular Regular rate and rhythm, Normal S1 and S2, No murmurs, gallops, rubs Abdomen Soft, No tenderness, No masses, No hepatosplenomegaly Rectal No masses Extremities No clubbing, No edema, Normal pulses, No tenderness, Strength = upper ext's, Strength = lower ext's Skin No Rashes, No Breakdown, No Significant Lesions Neurological Normal speech, Normal tone, Cranial nerves intact, No lateralizing signs Psych/Mental Status Mood normal LAB Results Laboratory Tests 08/26 08/26 08/27 2240 2240 0440 Chemistry Plasma Sodium (136 - 145 mmol/L) 138 Plasma Potassium (3.5 - 5.1 mmol/L) 2.9 Plasma Chloride (98 - 107 mmol/L) 98 CO2 (Enzymatic) (21 - 32 mmol/L) 28 BUN (7 - 18 mg/dL) 40 Creatinine (0.6 - 1.3 mg/dL) 2.1 Est GFR ( Amer) (mL/min) 42.61 Est GFR (Non-Af Amer) (mL/min) 35.16 Glucose (70 - 110 mg/dL) 106 Plasma Calcium (8.5 - 10.1 mg/dL) 8.1 Plasma Magnesium (1.8 - 2.4 mg/dL) 1.5 Total Bilirubin (0.0 - 1.0 mg/dL) 0.9 AST (15 - 37 U/L) 31 ALT (12 - 78 U/L) 59 Alkaline Phosphatase (46 - 116 U/L) 66 Total Protein (6.4 - 8.2 g/dL) 7.6 Albumin (3.3 - 5.0 g/dL) 3.7 Hematology WBC (4.5 - 11.5 K/uL) 8.9 RBC (4.50 - 5.90 M/uL) 4.35 Hgb (13.5 - 17.5 gm/dL) 13.1 Hct (41.0 - 53.0 %) 38.5 MCV (80 - 100 fL) 89 MCH (26 - 34 pg) 30 RDW (11.6 - 14.8 %) 14.2 Neut % (Auto) (50 - 75 %) 64.5 Lymph % (Auto) (25 - 40 %) 24.3 Hemphill % (Auto) (3 - 14 %) 6.7 Eos % (Auto) (0 - 4 %) 3.8 Baso % (Auto) (0 - 2 %) 0.7 Plt Count, EDTA (150 - 400 K/uL) 183 PUBS MCHC (31 - 37 g/dL) 34 Urines Ur Random Sodium (20 - 110 meq/L) 133 Ur Random Potassium (12.0 - 62.0 meq/L) 21.2 Ur Random Chloride (meq/L) 155 Microbiology Date/Time Procedure - Status Source Growth 08/26 2236 MRSA Screen - RECD NASAL Assessment and Plan Problem List 1. Renal failure Plan - improved renal function with iv fluids - given presentation most likely contraction alkalosis secondary to dehydration - will continue to monitor renal function daily - daily Is and Os - electrolyte monitoring 2. Hypertension Plan - Pts blood pressure is beginning to rise - if patient remains stable will resume Candesartan 16 mg daily (substitute for losartan 100 mg) 3. Disc herniation Plan - secondary to truama - pain well controlled 4. Plantar fasciitis Plan - pain is under control
[2016-08-27 18:05] VITALS: BP 129/77
[2016-08-27 22:29] VITALS: BP 119/51
[2016-08-28 03:27] VITALS: BP 138/73
[2016-08-28 07:09] VITALS: BP 138/79
--- NOTE | 2016-08-28 09:20 | ED DISCHARGE INSTRUCTIONS ---
Patient: JOY HARO General Instructions [facility] VisitID: [id number] [address] [place] [address] 56y, M Registration Date/Time: 08/26/2016 Near syncope .12 lead EKG performed. Acute dizziness. Hypotension; Primary Hypokalemia Acute renal failure due to over-diuresis: Primary. (Electronically signed by Luis Zamarripa MD 08/28/2016 9:20)
--- NOTE | 2016-08-28 09:20 | ED MED RECONCILIATION SUMMARY ---
Patient: JOY HARO Medication Reconciliation Report [facility] VisitID: [id number] [address] [place] [address] 56y, M Registration Date/Time: 08/26/2016 Weight: 136.0 kg Height/Length: 68 in. BMI: 45.6 ALLERGIES: Lidocaine The patient's Home Medications are listed below: THE FOLLOWING MEDICATIONS NEED TO BE RECONCILED: Atorvastatin Calcium Oral 40 mg, daily Flovent HFA Inhalation Gabapentin Oral 200 mg, 3x a day Losartan Potassium Oral 100 mg, daily OxyCODONE HCl Oral 5 mg, 3x a day ProAir HFA Inhalation TiZANidine HCl Oral 12 mg, 3x a day The source(s) of the original Home Medication information: patient The following Medications were given to the patient in the Emergency Department: IV NS IV Fluids bolus 0, then 1000 mL/hr, administered: 08/26/2016 11:22:00 AM KCL [PO] PO 20 meq, administered: 08/26/2016 12:58:00 PM IV NS IV Fluids bolus 0, then 1000 mL/hr, administered: 08/26/2016 1:27:00 PM The following Medications were prescribed to the patient: None.
--- NOTE | 2016-08-28 09:20 | ED DISCHARGE INSTRUCTIONS ---
Patient: JOY HARO General Instructions [facility] VisitID: [id number] [address] [place] [address] 56y, M Registration Date/Time: 08/26/2016 Near syncope .12 lead EKG performed. Acute dizziness. Hypotension; Primary Hypokalemia Acute renal failure due to over-diuresis: Primary. (Electronically signed by Luis Zamarripa MD 08/28/2016 9:20)
--- NOTE | 2016-08-28 09:20 | ED MAR SUMMARY ---
..... Medication Administration Record [facility] [address] [place] [address] Patient: JOY HARO Visit ID: [id number] 56y, M Weight: 136.0 kg Height/Length: 68 in BMI: 45.6 ALLERGIES: Lidocaine Start 11:22 08/26/2016 Sunshine Mejia,, Stop 13:07 08/26/2016 Sunshine Mejia, Medication Administered: IV NS (SALINE), Dose: IV Fluids over 1 hour(s), Rate: 1000 mL/hr, Dispensed: 1000 mL bag, Site: #1 left hand. Medication Ordered: IV NS : initial bolus 1000 mL (1000 mL/hr), then 500 mL/hr for X2 (NOW) (until BP stable.). Given 12:58 08/26/2016 Sunshine Mejia, Medication Administered: KCL [PO] (POTASSIUM CHLORIDE ER), Dose: 20 meq Tablets PO. Medication Ordered: KCl PO 20 meq (NOW). Start 13:27 08/26/2016 Sunshine Mejia, Medication Administered: IV NS (SALINE), Dose: IV Fluids over 1 hour(s), Rate: 1000 mL/hr, Dispensed: 1000 mL bag, Site: #1 left hand. Medication Ordered: IV NS : initial bolus 1000 mL (1000 mL/hr), then 500 mL/hr for X2 (NOW) (until BP stable.).
--- NOTE | 2016-08-28 09:20 | ED MAR SUMMARY ---
..... Medication Administration Record [facility] [address] [place] [address] Patient: JOY HARO Visit ID: [id number] 56y, M Weight: 136.0 kg Height/Length: 68 in BMI: 45.6 ALLERGIES: Lidocaine Start 11:22 08/26/2016 Sunshine Mejia,, Stop 13:07 08/26/2016 Susnhine Mejia, Medication Administered: IV NS (SALINE), Dose: IV Fluids over 1 hour(s), Rate: 1000 mL/hr, Dispensed: 1000 mL bag, Site: #1 left hand. Medication Ordered: IV NS : initial bolus 1000 mL (1000 mL/hr), then 500 mL/hr for X2 (NOW) (until BP stable.). Given 12:58 08/26/2016 Sunshine Mejia, Medication Administered: KCL [PO] (POTASSIUM CHLORIDE ER), Dose: 20 meq Tablets PO. Medication Ordered: KCl PO 20 meq (NOW). Start 13:27 08/26/2016 Sunshine Mejia, Medication Administered: IV NS (SALINE), Dose: IV Fluids over 1 hour(s), Rate: 1000 mL/hr, Dispensed: 1000 mL bag, Site: #1 left hand. Medication Ordered: IV NS : initial bolus 1000 mL (1000 mL/hr), then 500 mL/hr for X2 (NOW) (until BP stable.).
--- NOTE | 2016-08-28 09:20 | ED MED RECONCILIATION SUMMARY ---
Patient: JOY HARO Medication Reconciliation Report [facility] VisitID: [id number] [address] [place] [address] 56y, M Registration Date/Time: 08/26/2016 Weight: 136.0 kg Height/Length: 68 in. BMI: 45.6 ALLERGIES: Lidocaine The patient's Home Medications are listed below: THE FOLLOWING MEDICATIONS NEED TO BE RECONCILED: Atorvastatin Calcium Oral 40 mg, daily Flovent HFA Inhalation Gabapentin Oral 200 mg, 3x a day Losartan Potassium Oral 100 mg, daily OxyCODONE HCl Oral 5 mg, 3x a day ProAir HFA Inhalation TiZANidine HCl Oral 12 mg, 3x a day The source(s) of the original Home Medication information: patient The following Medications were given to the patient in the Emergency Department: IV NS IV Fluids bolus 0, then 1000 mL/hr, administered: 08/26/2016 11:22:00 AM KCL [PO] PO 20 meq, administered: 08/26/2016 12:58:00 PM IV NS IV Fluids bolus 0, then 1000 mL/hr, administered: 08/26/2016 1:27:00 PM The following Medications were prescribed to the patient: None.
[2016-08-28 10:59] VITALS: BP 124/53
--- NOTE | 2016-08-28 14:01 | Provider's Discharge Care Plan ---
Problem, Goal, Plan Problem List 1. Renal failure Instructions: Take meds as directed, - continue with medications given to you except for chlorathalidone 2. Dehydration Instructions: - resolved 3. Hypertension Instructions: Take meds as directed 4. Plantar fasciitis Instructions: - call for podiatry referral once meeting your pmd
--- NOTE | 2016-08-28 14:05 | Discharge Summary ---
Discharge Summary Report Admit Date 08/26/16 Discharge Date 08/28/16 Admission Diagnosis renal failure Discharge Diagnosis renal failure secondary to diuretic overuse Brief History Patient is a 56 year old male with a pmh of hypertension, herniated discs, asthma, and plantar fasciitis that is presenting with near syncope and hypotension. Patient had been in his [facility] when the patient started to see a new doctor for the first time in two years. Patient was placed on anti hypertensives as well as diuretics. Patient took the medications as prescribed and didnt have any adverse effects. Patient while at home had a sudden bout of vomiting and diarrhea while in the shower. Patient as a result fell and twisted his ankle. Patient had discomfort and swelling as a result. Patient called his doctor and described his leg "swollen to the size of a baseball". His pmd recommended that the patient start chlorathalidone for the swelling, and patient was told to increase his dosage over the next 4 days to 4 pills a day. Patient as a result began to take the medication. Patients leg swelling improved however he began to feel dizzy very easily and during each instance he had his fiance take his blood pressure which was 80s systolic. Patient continued on the medication despite this and would occasionally get dizzy and develop tunnel vision. Patient finally had a near syncopal episode this morning, his systolic was seen to be 75 by ems and patient was subsequently brought to the hospital. Hospital Course Patient was admitted for renal failure and dehydration. Patients diuretics were stopped and patient was placed on judicous hydration. Patients urine analysis was significant for pre renal azotemia. Patients renal function by the next morning was seen to improve significantly. Patient was monitored for another day and his renal failure improved even more. At this point given his normal renal function it was decided that the patient could be discharged home. Patient will be discharged and follow up with his pmd. HEENT Atraumatic, EOMI, Mucous membran moist/pink Lungs Clear to auscultation Cardiovascular Normal S1, Normal S2, No murmurs Abdomen Soft, No tenderness, No masses Skin No Breakdown, No Significant Lesions Neurological Normal speech, Normal tone, Sensation intact, Reflexes 2+ Discharge Instructions/Meds - continue with medications - follow up with pcp - avoid diuretics until given approval by pcp
--- NOTE | 2016-08-28 14:05 | Progress Note ---
Subjective General Patient seen and examined. patient has no complaints overnight. Patient is otherwise stable for discharge. Constitutional Denies: Fever, Chills, Sweats, Weakness, Malaise, Other. Eyes Denies: Pain, Vision Change, Conjunctival Inflammation, Eyelid Inflammation, Redness, Other. ENT Denies: Ear Pain, Ear Discharge, Nose Pain, Nasal Discharge, Nasal Congestion, Mouth Pain, Mouth Swelling, Throat Pain, Throat Swelling, Other. Respiratory Denies: Cough, Dry, SOB w/exertion, Wheezing, Hemoptysis, Pleuritic Pain, Sputum , Other. Cardiovascular Denies: Chest Pain, Palpitations, Orthopnea, PND, Edema, Light-headedness, Other. Gastrointestinal Denies: Nausea, Vomiting, Abdominal Pain, Diarrhea, Constipation, Melena, Hematochezia, Other. Genitourinary Denies: Dysuria, Frequency, Incontinence, Hematuria, Retention, Other. Musculoskeletal Denies: Neck Pain, Shoulder Pain, Arm Pain, Back Pain, Hand Pain, Leg Pain, Foot Pain, Other. Skin Denies: Rash, Lesions, Jaundice, Bruising, Other. Neurological Denies: Weakness, Numbness, Incoordination, Change in speech, Confusion, Seizures, Other. Physical Exam Vital Signs / I&Os Vital Signs Date Time Temp Pulse Resp B/P Pulse O2 O2 Flow FiO2 Ox Delivery Rate 08/28 1059 98.4 93 18 124/53 97 Room Air 0.0 08/28 0709 98.8 81 14 138/79 96 Room Air 08/28 0327 99.0 68 19 138/73 95 Room Air 08/27 2229 98.2 76 20 119/51 96 Room Air 08/27 1805 99.0 107 19 129/77 97 Room Air 08/27 1542 98.8 96 17 138/70 Room Air I&O 08/27 0800 08/27 1600 08/28 0000 Intake Total 1110 1333 2316 Output Total 1950 1300 1600 Balance -840 33 716 General Appearance Alert, Oriented X3, No acute distress Lungs Clear to auscultation, Normal air movement Neck Supple, No JVD, No masses Cardiovascular Regular rate and rhythm, Normal S1 and S2, No murmurs, gallops, rubs Abdomen Soft, No tenderness, No guarding, No hepatosplenomegaly Extremities No cyanosis, No clubbing, No edema, Normal pulses, No tenderness Skin No Breakdown, No Significant Lesions Neurological Normal speech, Normal tone, Sensation intact, Cranial nerves intact , Strength 5/5 x4 ext's, No lateralizing signs Psych/Mental Status Mood normal LAB Results Laboratory Tests 08/28 044 Chemistry Plasma Sodium (136 - 145 mmol/L) 136 Plasma Potassium (3.5 - 5.1 mmol/L) 2.7 Plasma Chloride (98 - 107 mmol/L) 96 CO2 (Enzymatic) (21 - 32 mmol/L) 29 BUN (7 - 18 mg/dL) 28 Creatinine (0.6 - 1.3 mg/dL) 1.5 Est GFR ( Amer) (mL/min) >60 Est GFR (Non-Af Amer) (mL/min) 51.84 Glucose (70 - 110 mg/dL) 115 Plasma Calcium (8.5 - 10.1 mg/dL) 7.8 Plasma Magnesium (1.8 - 2.4 mg/dL) 1.6 Total Bilirubin (0.0 - 1.0 mg/dL) 0.7 AST (15 - 37 U/L) 24 ALT (12 - 78 U/L) 53 Alkaline Phosphatase (46 - 116 U/L) 61 Total Protein (6.4 - 8.2 g/dL) 7.5 Albumin (3.3 - 5.0 g/dL) 3.7 Hematology WBC (4.5 - 11.5 K/uL) 10.1 RBC (4.50 - 5.90 M/uL) 4.09 Hgb (13.5 - 17.5 gm/dL) 12.3 Hct (41.0 - 53.0 %) 36.1 MCV (80 - 100 fL) 89 MCH (26 - 34 pg) 30 RDW (11.6 - 14.8 %) 13.7 Neut % (Auto) (50 - 75 %) 67.2 Lymph % (Auto) (25 - 40 %) 23.1 [place] % (Auto) (3 - 14 %) 6.2 Eos % (Auto) (0 - 4 %) 2.9 Baso % (Auto) (0 - 2 %) 0.6 Plt Count, EDTA (150 - 400 K/uL) 201 PUBS MCHC (31 - 37 g/dL) 34 Assessment and Plan Problem List 1. Renal failure Plan - resolved - Pt had pre-renal azotemia secondary to diuretic overuse - patients urine analysis shows normal electrolyte distribution - will discharge today - pt will not take any diuretics until he is seen by pmd 2. Dehydration Plan - resolved - pt encouraged to limit his water intake to 2.5 liters a day 3. Hypertension Plan - well controlled while in the hospital - pt will resume home meds except for diuretics 4. Plantar fasciitis Plan - no exacerbations noted - [employer] referral as an out patient 5. Disc herniation Plan - pain is under control - will continue with po pain medication
[2016-08-28] MEDS ORDERED: LOPRESSOR25 MG PO (14:10)
== END 2016-08-28 16:10 | disposition home or self-care (01) ==
LOC: ED SRH 11:11 → TRANS SRH 16:08 → CC SRH 16:08
PROVIDERS: ADMIT Emergency Medicine
DX: N17.9 Acute kidney failure, unspecified (principal); E86.0 Dehydration; R55 Syncope and collapse; T50.2X5A Adverse effect of carbonic-anhydrase inhibitors, benzothiadiazides and other diuretics, initial encounter; M72.2 Plantar fascial fibromatosis; I10 Essential (primary) hypertension
CPT/HCPCS: 29242; 29243; 29244; 29250; 29254; 90011; 90074; 90100; 90616; 91320; 91672; 92132; 92300; 92350; 92610; 92720; 93140; 95059